=== PATIENT | female | born 1975 | race Asian ===

== ENCOUNTER 2024-06-25 07:03 | Day surgery (SDC) | payer OTHER ==
[~2024-06-25] VITALS: Ht 154.9 cm; Wt 68.1 kg
[~2024-06-25 07:03] MED LIST: ASPI-1450 PO; CALC-1085 PO; HYDR200T38 PO; PRED-549 PO; SODIUM CHLORIDE 0.9% 1,000 ML ONE
[2024-06-25] MEDS ORDERED: ALBUTEROL SULFATE 2.5 MG/0.5 ML NEB SOLUTION NEB ONE (07:04)
[2024-06-25] MEDS ORDERED: LIDOCAINE 4% 50 ML SOLUTION TP ONE (07:04)
[2024-06-25] MEDS ORDERED: LIDOCAINE 2% 11 ML JELLY TP ONE (07:04)
[2024-06-25] MEDS ORDERED: BENZOCAINE 20% 50 MCG/SPRAY 57 GM TP ONE (07:04)
[2024-06-25] MEDS ORDERED: FentaNYL CITRATE PF 100 MCG/2 ML VIAL ONE (07:55)
[2024-06-25] MEDS ORDERED: MIDAZOLAM HCL 2 MG/2 ML VIAL ONE (07:56)
[2024-06-25] MEDS: SODIUM CHLORIDE 0.9% 1,000 ML IV ONE (09:08)
[2024-06-25 09:20] VITALS: PULSE 75; RESP 20; O2SAT 99
[2024-06-25] MEDS ORDERED: MethylPREDNISolone SOD SUCC 125 MG/2 ML VIAL ONE (09:52)
[2024-06-25] MEDS: MethylPREDNISolone SOD SUCC 125 MG/2 ML VIAL IVP ONE (09:53)
== END 2024-06-25 14:05 | disposition home or self-care (01) ==
LOC: SURGERY 07:03
PROVIDERS: ATTEND Internal Medicine Critical Care Medicine
DX: R05.3 Chronic cough (principal); R04.2 Hemoptysis; J38.4 Edema of larynx; B37.0 Candidal stomatitis; Z87.01 Personal history of pneumonia (recurrent); Z98.890 Other specified postprocedural states; Z79.899 Other long term (current) drug therapy
CPT/HCPCS: 31623; 87206; 87101; 87220; 87070; 31624; 88108; 71045; 87015; J3010; J2250; J2919; J7030; J7613; Z7610